=== PATIENT | female | born 2000 | race Hispanic/Latino ===

== ENCOUNTER 2020-05-04 14:40 | Emergency (ER) | payer MEDICAID ==
[2020-05-04] MEDS ORDERED: IBUPROFEN 400 MG TABLET ONE (15:25)
== END 2020-05-04 17:01 | disposition home or self-care (01) ==
LOC: EDH 14:40
DX: S90.111A Contusion of right great toe without damage to nail, initial encounter (principal); S90.121A Contusion of right lesser toe(s) without damage to nail, initial encounter; W22.8XXA Striking against or struck by other objects, initial encounter; Y93.89 Activity, other specified; Y92.89 Other specified places as the place of occurrence of the external cause; Y99.8 Other external cause status
CPT/HCPCS: 73630